=== PATIENT | male | born 1995 | race Caucasian/White ===

== ENCOUNTER 2018-05-28 15:18 | Emergency (ER) | payer OTHER ==
[2018-05-28 15:53] LABS: BASO % 0 % (0-3); EOS % 0 % (0-3); HEMATOCRIT 41.6 % (39.0-53.0); HEMOGLOBIN 14.4 g/dL (13.0-17.5); LYMPH # 0.9 x10^3/uL (1.0-4.8); LYMPH % 13 % (24-48); MEAN CORPUSCULAR HEMOGLOBIN 32 pg (25-35); MEAN CORPUSCULAR HGB CONC 35 g/dL (31-37); MEAN CORPUSCULAR VOLUME 94 fL (79-100); MONO # 0.4 x10^3/uL (0.0-1.1); MONO % 6 % (0-9); NEUT # 5.6 x10^3uL (1.8-7.7); NEUT % 81 % (31-73); PLATELET COUNT 301 x10^3/uL (140-400); RED BLOOD COUNT 4.44 x10^6/uL (4.30-5.70); WHITE BLOOD COUNT 6.9 x10^3/uL (4.0-11.0)
[2018-05-28 16:00] LABS: CALCIUM 9.8 mg/dL (8.5-10.1); CREATININE 1.6 mg/dL (0.7-1.3); GFR 53.8; POTASSIUM 4.2 mmol/L (3.5-5.1)
[2018-05-28] MEDS ORDERED: IV NORMAL SALINE 1,000ML 1,000 ML IV ONE (16:00)
--- NOTE | 2018-05-28 16:35 | ED.ADGEN ---
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 Patient was completing a 2 minute while at a subtle 16 minute and 30 neck and face. States this is around his frequently completed the past without difficulty. However, the patient was assisted through the running 1 developed left-sided chest pain which persists on ED arrival. Pain is dull and cramping. It is not associated with nausea, sweats, shortness of breath. Patient does have history of benign heart murmur which was recently worked up as an outpatient by a water quality technician with normal echo grams per patient report. No other acute symptoms or complaints.[] Review of Systems Review of Systems ROS as per HPI[] All other systems were reviewed and found to be within normal limits, except as documented in this note. Current Medications Current Medications Current Medications Medications (Trade) Dose Ordered Sig/Luis Start Time Stop Time Status Last Admin Dose Admin Ketorolac Tromethamine (Toradol 15mg Vial) 15 mg 1X ONCE 05/28/18 17:00 05/28/18 17:01 DC 05/28/18 16:57 15 MG Lorazepam (Ativan) 1 mg 1X ONCE 05/28/18 17:00 05/28/18 17:01 DC 05/28/18 16:57 1 MG Sodium Chloride 1,000 ml @ 1,000 mls/hr 1X ONCE 05/28/18 16:00 05/28/18 16:59 DC 05/28/18 15:54 1,000 MLS/HR Allergies Allergies Allergies Coded Allergies Type Severity Reaction Last Updated Verified No Known Drug Allergies 05/28/18 No Physical Exam Physical Exam Constitutional: Well developed, well nourished, no acute distress, non-toxic appearance. [] HENT: Normocephalic, atraumatic, bilateral external ears normal, oropharynx moist, no oral exudates, nose normal. [] Eyes: PERRLA, EOMI, conjunctiva normal, no discharge. [] Neck: Normal range of motion, no tenderness, supple, no stridor. [] Cardiovascular:Heart rate regular rhythm, no murmur [] Lungs & Thorax: Bilateral breath sounds clear to auscultation [] Abdomen: Bowel sounds normal, soft, no tenderness, no masses, no pulsatile masses. [] Skin: Warm, dry, no erythema, no rash. [] Back: No tenderness, no CVA tenderness. [] Extremities: No tenderness, no cyanosis, no clubbing, ROM intact, no edema. [] Neurologic: Alert and oriented X 3, normal motor function, normal sensory function, no focal deficits noted. [] Psychologic: Affect normal, judgement normal, mood normal. [] Current Patient Data Vital Signs Vital Signs Date Time Temp Pulse Resp B/P (MAP) Pulse Ox O2 Delivery O2 Flow Rate FiO2 05/28/18 15:20 98.2 123 24 100 Room Air Lab Results Laboratory Tests Test 05/28/18 15:37 White Blood Count 6.9 x10^3/uL (4.0-11.0) Red Blood Count 4.44 x10^6/uL (4.30-5.70) Hemoglobin 14.4 g/dL (13.0-17.5) Hematocrit 41.6 % (39.0-53.0) Mean Corpuscular Volume 94 fL (79-100) Mean Corpuscular Hemoglobin 32 pg (25-35) Mean Corpuscular Hemoglobin Concent 35 g/dL (31-37) Red Cell Distribution Width 13.0 % (11.5-14.5) Platelet Count 301 x10^3/uL (140-400) Neutrophils (%) (Auto) 81 % (31-73) H Lymphocytes (%) (Auto) 13 % (24-48) L Monocytes (%) (Auto) 6 % (0-9) Eosinophils (%) (Auto) 0 % (0-3) Basophils (%) (Auto) 0 % (0-3) Neutrophils # (Auto) 5.6 x10^3uL (1.8-7.7) Lymphocytes # (Auto) 0.9 x10^3/uL (1.0-4.8) L Monocytes # (Auto) 0.4 x10^3/uL (0.0-1.1) Eosinophils # (Auto) 0.0 x10^3/uL (0.0-0.7) Basophils # (Auto) 0.0 x10^3/uL (0.0-0.2) Sodium Level 138 mmol/L (136-145) Potassium Level 4.2 mmol/L (3.5-5.1) Chloride Level 101 mmol/L (98-107) Carbon Dioxide Level 21 mmol/L (21-32) Anion Gap 16 (6-14) H Blood Urea Nitrogen 9 mg/dL (8-26) Creatinine 1.6 mg/dL (0.7-1.3) H Estimated GFR (Cockcroft-Gault) 53.8 Glucose Level 144 mg/dL (70-99) H Calcium Level 9.8 mg/dL (8.5-10.1) Troponin I Quantitative < 0.017 ng/mL (0-0.055) EKG EKG [EKG: Sinus tach, rate 125, incomplete right bundle-branch block. Interpretation limited due to artifact. EKG #2: Normal sinus rhythm, rate 100, no acute ST-T wave changes. Early repolarization present.] Radiology/Procedures Radiology/Procedures [Chest x-ray: No acute cardiopulmonary disease on preliminary ED review] Course & Med Decision Making Course & Med Decision Making Pertinent Labs and Imaging studies reviewed. (See chart for details) Personal chest pain, EKG, troponin nonacute. Patient tremulous and feels flushed. No shortness rest nausea or sweats. Toradol and Ativan given. Will repeat EKG and continue to monitor in the ED. symptoms resolved with treatment. Suspect patient was running with secondary anxiety state. Recommend following up with patient's physician prior to medical clearance to return to exercise. Return precautions reviewed.] Final Impression Final Impression [1. Chest pain] Dragjhoana Disclaimer Dragon Disclaimer This electronic medical record was generated, in whole or in part, using a voice recognition dictation system. MARKO MCNAIR DO May 28, 2018 16:35
--- NOTE | 2018-05-28 16:44 | RAD ---
Exam: AP portable chest History: Chest pain beginning today. Comparison: None. Findings: The heart and mediastinal structures are within normal limits for size. Lungs are without infiltrate. No pleural effusion or pneumothorax is identified. Impression: 1. No acute cardiopulmonary process. Electronically signed by: Abram Loaiza MD (05/28/2018 4:41 PM) [place] [id number]
--- NOTE | 2018-05-28 16:45 | EKG ---
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
[2018-05-28] MEDS ORDERED: LORazepam 2 MG/ML VIAL IV ONE (17:00)
[2018-05-28] MEDS ORDERED: KETOROLAC 15 MG/ML VIAL. IV ONE (17:00)
[2018-05-28 17:40] VITALS: BP 133/63
== END 2018-05-28 18:03 | disposition home or self-care (01) ==
LOC: ER 15:18
DX: R07.89 Other chest pain (principal)
CPT/HCPCS: 36415; 71045; 80048; 84484; 85025; 93005; 96374; 96375; 99285; J1885; J2060; 96361; J7030

== ENCOUNTER 2018-07-04 00:14 | Emergency (ER) | payer OTHER ==
[~2018-07-04] VITALS: Ht 190.5 cm; Wt 79.4 kg
--- NOTE | 2018-07-04 00:28 | PHYS DOC ---
Past History Past Medical History: Other Past Surgical History: No Surgical History Alcohol Use: None Drug Use: None Adult General HPI HPI Patient is a 23-year-old male who presents to the emergency department for evaluation. He states [place] [employer] when he began having uncontrollable shaking. He is exhibiting alternating shaking in his extremities. He states that this is happened several times in the past. He states he has seen a neurologist, but no definitive diagnosis was forthcoming. He states that he was prescribed Xanax to take it this was to recur, which she did about an hour prior to arrival. He reports some paresthesias in his hands, and reports some muscle tightening. He exhibits an anxious affect, but denies a definite history of anxiety in the past. He denies any other mental health problems. Review of Systems Review of Systems Constitutional: Denies fever or chills [] Eyes: Denies change in visual acuity, redness, or eye pain [] HENT: Denies nasal congestion or sore throat [] Respiratory: Denies cough or shortness of breath [] Cardiovascular: The patient denies any shortness of breath, chest pain, palpitations, or orthopnea [] GI: Denies abdominal pain, nausea, vomiting, bloody stools or diarrhea [] : Denies dysuria or hematuria [] Musculoskeletal: Denies back pain or joint pain [] Integument: Denies rash or skin lesions [] Neurologic: Denies headache, focal weakness or sensory changes [] Endocrine: Denies polyuria or polydipsia [] All other systems were reviewed and found to be within normal limits, except as documented in this note. Allergies Allergies Allergies Coded Allergies Type Severity Reaction Last Updated Verified No Known Drug Allergies 05/28/18 No Physical Exam Physical Exam PHYSICAL EXAM: CONSTITUTIONAL: Well developed, well nourished HEAD: normocephalic, atraumatic EENT: PERRL, EOMI. Conjunctivae normal color, sclerae non-icteric; moist mucous membranes. NECK: Supple, non-tender; no meningismus. LUNGS: Lungs CTA, the patient is hyperventilating. Normal air movement. HEART: Regular rate and rhythm, no murmur CHEST: No deformity; non-tender ABDOMEN: The abdomen is soft, and non-tender, no masses or bruits. EXTREM: Normal ROM; no deformity, no calf tenderness. Normal pulses palpable in all extremities. There is no pedal edema. SKIN: No rash; no diaphoresis NEURO: Alert; normal speech and cognition; CN's grossly intact; strength grossly intact without focal deficit. There is intermittent shaking noted in all 4 extremities, although not all for the same time. The patient has controllable of his extremities. His activity is NOT consistent with seizure activity. BACK: No CVA TTP. PSYCHIATRIC: The patient exhibits an anxious affect. EKG EKG [] Radiology/Procedures Radiology/Procedures [] Course & Med Decision Making Course & Med Decision Making Pertinent Labs and Imaging studies reviewed from the patient's prior recent ER visit. (See chart for details) [12:20 AM: Initial evaluation in the emergency Department reveals a young male with atypical shaking, suggestive of underlying anxiety, versus conversion disorder. He'll be treated for anxiety and monitored in the emergency department. He is currently being followed by an outpatient neurologist for workup of similar episodes in the past.] 1:35 AM: The patient's symptoms have resolved. He is back to normal, without complaints at this time. I discussed importance of close outpatient follow-up as well as mental health evaluation, as I do believe this is primarily a psychiatric issue nonneurological medical issue. We discussed return precautions. Dragon Disclaimer Dragon Disclaimer This electronic medical record was generated, in whole or in part, using a voice recognition dictation system. Departure Departure: Impression: Primary Impression: Anxiety Additional Impression: Conversion disorder Disposition: HOME, SELF-CARE Condition: STABLE Referrals: EVERETTE HOWELL DO (PCP) Patient Instructions: Anxiety and Panic Attacks, Conversion Disorder Problem Qualifiers RAMAN ESTRADA MD Jul 04, 2018 00:28
[2018-07-04] MEDS ORDERED: LORazepam 2 MG/ML VIAL IM ONE (00:30)
[2018-07-04 01:45] VITALS: BP 113/67
== END 2018-07-04 01:50 | disposition home or self-care (01) ==
LOC: ER 00:14
DX: F41.9 Anxiety disorder, unspecified (principal); F44.9 Dissociative and conversion disorder, unspecified
CPT/HCPCS: 96372; 99284; J2060